=== PATIENT | male | born 1985 | race Caucasian/White ===

== ENCOUNTER 2020-12-15 18:54 | Emergency (ER) | payer OTHER ==
[~2020-12-15] VITALS: Ht 193 cm; Wt 77.1 kg
[~2020-12-15 18:54] MED LIST: IBUP600 PO; SULTRIDS PO
[2020-12-15] MEDS ORDERED: LIDO700A20 TOP (20:51)
[2020-12-15] MEDS ORDERED: ACET500 PO (20:51)
== END 2020-12-15 21:03 | disposition home or self-care (01) ==
LOC: ER 18:54
DX: S39.012A Strain of muscle, fascia and tendon of lower back, initial encounter (principal); F17.210 Nicotine dependence, cigarettes, uncomplicated; X58.XXXA Exposure to other specified factors, initial encounter
CPT/HCPCS: 72100; 99283-25

== ENCOUNTER → 2021-08-05 | Outpatient (CLI) | payer OTHER ==
[~2021-08-05] MED LIST changes: +ACET500 PO; +LIDO700A20 TOP
== END | disposition home or self-care (01) ==
LOC: LAB 14:26 → LAB SHORT 14:26
DX: J02.9 Acute pharyngitis, unspecified (principal)
CPT/HCPCS: 87081